=== PATIENT | female | born 2000 | race Caucasian/White ===

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

== ENCOUNTER → 2023-05-27 | Outpatient (CLI) | payer OTHER ==
[2023-05-27 17:26] LABS: BASO % 0.5 % (0.0-1.0); EOS # 0.1 10^3/uL (0.0-0.5); EOS % 1.3 % (0.0-3.0); HEMATOCRIT 39.5 % (36.0-47.0); LYMPH % 22.7 % (24.0-44.0); MEAN CORPUSCULAR HEMOGLOBIN 29.9 pg (27.0-33.0); MEAN CORPUSCULAR HGB CONC 32.9 g/dl (32.0-36.5); MEAN CORPUSCULAR VOLUME 90.8 fl (80.0-96.0); MONO # 0.6 10^3/uL (0.0-0.8); MONO % 6.6 % (2.0-8.0); NEUTROPHILS # 6.1 10^3/uL (1.5-8.5); NEUTROPHILS % 68.7 % (36.0-66.0); PLATELET COUNT, AUTOMATED 349 10^3/uL (150-450); RED BLOOD COUNT 4.35 10^6/uL (4.00-5.40); WHITE BLOOD COUNT 8.8 10^3/uL (4.0-10.0)
[2023-05-27 17:42] LABS: ALBUMIN 3.6 G/DL (3.2-5.2); ALKALINE PHOSPHATASE 45 U/L (46-116); ALT/SGPT 24 U/L (7.0-40); AST/SGOT 14 U/L (<34); BILIRUBIN,DIRECT < 0.1 MG/DL (<0.4); BILIRUBIN,TOTAL 0.3 MG/DL (0.3-1.2); BLOOD UREA NITROGEN 8 MG/DL (9-23); CALCIUM LEVEL 9.1 MG/DL (8.5-10.1); CARBON DIOXIDE LEVEL 24 MMOL/L (20-31); CHLORIDE LEVEL 107 MMOL/L (98-107); CPK CREATINE PHOSPHOKINASE 61 U/L (34-145); CREATININE FOR GFR 0.67 MG/DL (0.55-1.30); GLOMERULAR FILTRATION RATE > 60.0 (>60); GLUCOSE, FASTING 90 MG/DL (60-100); POTASSIUM SERUM 4.1 MMOL/L (3.5-5.1); SODIUM LEVEL 140 MMOL/L (136-145); TOTAL PROTEIN 6.9 G/DL (5.7-8.2)
[2023-05-27 17:43] LABS: THYROXINE (T4) 14.4 UG/DL (4.5-10.9); TOTAL T3 173.6 NG/DL (60.0-181.0)
[2023-05-27 17:44] LABS: THYROID STIMULATING HORMONE 1.046 uIU/ML (0.55-4.78)
[2023-05-27 18:20] LABS: HEMOGLOBIN A1c 4.5 % (4.0-6.0)
== END ==
LOC: M WUC 12:50
DX: R53.83 Other fatigue (principal)

== ENCOUNTER → 2023-05-27 | Outpatient (CLI) | payer OTHER ==
[2023-05-27 18:09] LABS: HIV 1&2 SCREEN NEGATIVE (NEGATIVE)
[2023-05-27 20:44] LABS: GC DNA AMPLIFICATION NEGATIVE (NEGATIVE)
[2023-05-29 07:07] LABS: HSV TYPE II IgG SPECIFIC <0.91 index (0.00-0.90)
== END ==
LOC: M WUC 14:29
PROVIDERS: ATTEND Nurse Practitioner Adult Health
DX: Z11.3 Encounter for screening for infections with a predominantly sexual mode of transmission (principal)

== ENCOUNTER → 2023-12-26 | Outpatient (REF) | payer OTHER | LOC: M LABWUC 11:23 | PROVIDERS: ATTEND Nurse Practitioner Adult Health | DX: N92.6 Irregular menstruation, unspecified (principal) ==

== ENCOUNTER → 2024-06-21 | Outpatient (REF) | payer OTHER | LOC: M LAB REF 11:29 | PROVIDERS: ATTEND Student in an Organized Health Care Education/Training Program | DX: R30.0 Dysuria (principal) ==

== ENCOUNTER → 2024-11-30 | Outpatient (CLI) | payer OTHER ==
[2024-11-30 11:06] LABS: BASO % 0.4 % (0.0-1.0); EOS # 0.2 10^3/uL (0.0-0.5); EOS % 2.3 % (0.0-3.0); HEMATOCRIT 40.7 % (36.0-47.0); HEMOGLOBIN 13.3 g/dl (12.0-15.5); LYMPH # 1.9 10^3/uL (1.5-5.0); LYMPH % 19.2 % (24.0-44.0); MEAN CORPUSCULAR HEMOGLOBIN 29.1 pg (27.0-33.0); MEAN CORPUSCULAR HGB CONC 32.7 g/dl (32.0-36.5); MEAN CORPUSCULAR VOLUME 89.1 fl (80.0-96.0); MONO # 0.7 10^3/uL (0.0-0.8); MONO % 6.7 % (2.0-8.0); NEUTROPHILS # 7.2 10^3/uL (1.5-8.5); NEUTROPHILS % 71.2 % (36.0-66.0); PLATELET COUNT, AUTOMATED 341 10^3/uL (150-450); RED BLOOD COUNT 4.57 10^6/uL (4.00-5.40); WHITE BLOOD COUNT 10.1 10^3/uL (4.0-10.0)
[2024-11-30 11:29] LABS: CORTISOL AM 15.6 UG/DL (4.3-22.4)
[2024-11-30 11:32] LABS: BLOOD UREA NITROGEN 6 MG/DL (9-23); CALCIUM LEVEL 8.8 MG/DL (8.5-10.1); CARBON DIOXIDE LEVEL 25 MMOL/L (20-31); CHLORIDE LEVEL 107 MMOL/L (98-107); CREATININE FOR GFR 0.64 MG/DL (0.55-1.30); GLOMERULAR FILTRATION RATE > 60.0 (>60); GLUCOSE, FASTING 79 MG/DL (60-100); IRON (FE) 37 UG/DL (50-170); PERCENT SATURATION 11.3 % (13.2-45.0); POTASSIUM SERUM 4.5 MMOL/L (3.5-5.1); SODIUM LEVEL 141 MMOL/L (136-145); THYROID STIMULATING HORMONE 1.702 uIU/ML (0.55-4.78); THYROXINE (T4) 7.4 UG/DL (4.5-10.9); TOTAL IRON BINDING CAPACITY 327 UG/DL (250-425)
[2024-11-30 11:33] LABS: FERRITIN 35.3 NG/ML (7.3-270.7); FREE T4 0.99 NG/DL (0.89-1.76)
[2024-11-30 11:34] LABS: ESTRADIOL 23.9 PG/ML; FOLLICLE STIMULATING HORMONE 5.9 mIU/ML; LUTEINIZING HORMONE 5.3 mIU/ML; TOTAL 25(OH) VITAMIN D 23.4 NG/ML (20.0-100.0)
[2024-11-30 11:35] LABS: FOLATE 8.83 NG/ML (>5.4)
[2024-11-30 11:37] LABS: FREE T3 3.6 PG/ML (2.3-4.2); TOTAL T3 140.5 NG/DL (60.0-181.0)
[2024-11-30 11:38] LABS: VITAMIN B12 LEVEL 292 PG/ML (211-911)
[2024-12-01 10:27] LABS: INSULIN TOTAL2 15.6 uIU/mL (<=18.4)
== END ==
LOC: M WUC 08:23
PROVIDERS: ATTEND Nurse Practitioner Adult Health
DX: R94.6 Abnormal results of thyroid function studies (principal); N92.6 Irregular menstruation, unspecified; E55.9 Vitamin D deficiency, unspecified; E66.9 Obesity, unspecified

== ENCOUNTER → 2025-02-02 | Outpatient (CLI) | payer OTHER | LOC: M WHC 11:04 | PROVIDERS: ATTEND Physician Assistant | DX: N93.9 Abnormal uterine and vaginal bleeding, unspecified (principal) ==

== ENCOUNTER → 2025-02-02 | Outpatient (CLI) | payer OTHER | LOC: M PLALAB 11:05 | PROVIDERS: ATTEND Physician Assistant | DX: N93.9 Abnormal uterine and vaginal bleeding, unspecified (principal) ==

== ENCOUNTER → 2025-07-11 | Outpatient (CLI) | payer OTHER ==
[2025-07-11 15:46] LABS: HIV 1&2 SCREEN NEGATIVE (NEGATIVE)
[2025-07-11 15:55] LABS: HEPATITIS C VIRUS ABY INDEX < 0.02 INDEX (<0.8)
[2025-07-11 20:06] LABS: GC DNA AMPLIFICATION NEGATIVE (NEGATIVE)
== END ==
LOC: M WUC 09:54
PROVIDERS: ATTEND Nurse Practitioner Adult Health
DX: Z11.3 Encounter for screening for infections with a predominantly sexual mode of transmission (principal)